=== PATIENT | female | born 1945 | race Caucasian/White ===

== ENCOUNTER 2025-07-08 13:37 | Inpatient (IN) | payer MEDICARE ==
[2025-07-08] MEDS ORDERED: Acetaminophen 325 MG TAB PO PRN (17:10)
[2025-07-08 17:28] VITALS: BMI 32.5
[2025-07-08] MEDS: Apixaban 5 MG TAB PO SCH (20:12)
[2025-07-08] MEDS: Melatonin 3 MG TAB PO PRN (20:13)
[2025-07-09] MEDS: Metoprolol Succinate XL 25 MG ER.TAB PO SCH (09:25)
[2025-07-09] MEDS: Folic Acid 1 MG TAB PO SCH (09:26)
[2025-07-09] MEDS: Losartan 25 MG TAB PO SCH (09:26)
[2025-07-09] MEDS: Sodium Chloride 0.65% Nasal 44 ML BOT EA NARE SCH ×2 (10:53→21:00)
[2025-07-09] MEDS: Mupirocin 1 GM TUBE TP SCH (12:42)
[2025-07-10] MEDS: Mupirocin 1 GM TUBE TP SCH (00:08)
[2025-07-11] MEDS: Rosuvastatin 10 MG TAB PO SCH (20:53)
[2025-07-13 05:21] LABS: #Basophils 0.1 thou/uL (0.0-0.2); #Eosinophils 0.3 thou/uL (0.0-0.7); #Lymphocytes 2.5 thou/uL (1.20-3.40); #Monocytes 1.0 thou/uL (0.11-0.59); #Neutrophils 3.7 thou/uL (1.40-6.50); %Basophils 1.1 % (0.0-1.0); %Eosinophils 3.8 % (0.0-10.0); %Lymphocytes 33.6 % (21.0-51.0); %Monocytes 12.8 % (0.0-10.0); %Neutrophils 48.7 % (42.0-75.0); Hematocrit 30.8 % (36.0-47.0); Hemoglobin 10.1 g/dL (12.0-16.0); Mean Corpuscular Hemoglobin 31.8 pg (27.0-31.0); Mean Corpuscular Volume 97.2 fl (78.0-98.0); Platelet Count 267 10x3/uL (130-400); Red Blood Cell (RBC) Count 3.16 mill/uL (4.20-5.40); White Blood Cell (WBC) Count 7.5 10x3/uL (4.8-10.8)
[2025-07-13 05:37] LABS: Anion Gap 13 mmol/L (10-20); BUN (Urea Nitrogen) 15 mg/dL (9.8-20.1); Calc. Creatinine Clearance 97 mL/min (70-130); Calcium 8.5 mg/dL (7.8-10.44); Carbon Dioxide 25 mmol/L (23-31); Chloride 108 mmol/L (98-107); Glucose 93 mg/dL (83-110); Potassium 4.1 mmol/L (3.5-5.1); Sodium 142 mmol/L (136-145)
[2025-07-13] MEDS: Senokot S 8.6-50 MG TAB PO PRN (08:46)
[2025-07-18 12:20] VITALS: BMI 33.1
[2025-07-18 14:21] LABS: ALT (SGPT) 14 U/L (Less than 34); AST (SGOT) 22 U/L (11-34); Albumin 3.3 g/dL (3.1-4.5); Alkaline Phosphatase 116 U/L (40-110); Bilirubin, Direct 0.2 mg/dL (0.1-0.3); Bilirubin, Total 0.3 mg/dL (0.3-1.2)
[2025-07-19 16:23] VITALS: BP 101/62; TEMP 98.1
== END 2025-07-19 13:25 | disposition home or self-care (01) | DRG 946 ==
LOC: MADMS 15:13
PROVIDERS: ADMIT Family Medicine; ATTEND Family Medicine
PROC: F07Z9ZZ Gait Training/Functional Ambulation Treatment (ICD-10-PCS; principal; 2025-07-08)
DX: R53.1 Weakness (principal); I25.10 Atherosclerotic heart disease of native coronary artery without angina pectoris; M06.9 Rheumatoid arthritis, unspecified; I25.5 Ischemic cardiomyopathy; R26.89 Other abnormalities of gait and mobility; R53.81 Other malaise; I51.3 Intracardiac thrombosis, not elsewhere classified; I10 Essential (primary) hypertension; I95.9 Hypotension, unspecified; Z98.61 Coronary angioplasty status; Z79.01 Long term (current) use of anticoagulants; Z79.02 Long term (current) use of antithrombotics/antiplatelets; I25.2 Old myocardial infarction; Z90.710 Acquired absence of both cervix and uterus; Z98.890 Other specified postprocedural states; Z88.8 Allergy status to other drugs, medicaments and biological substances; Z79.899 Other long term (current) drug therapy
CPT/HCPCS: 36415; 80048; 80076; 85025; Q0162